=== PATIENT | male | born 1950 | race Caucasian/White ===

== ENCOUNTER 2024-07-06 08:37 | Outpatient (CLI) | payer OTHER, SELFPAY ==
[2024-07-06 08:55] VITALS: BMI 31.9
--- NOTE | 2024-07-06 09:22 | NMCV_ITS ---
NM fatoumata perf SPECT r/s* [id number] Tuan Tubbs Age: 73 Gender: M : 1950 Exam Date: 07/06/2024 09:35 Ordering Phys: Nikky Claire MD Technologist: CHARLENE Martinez Exam Location: [facility] Indications: STRESS TEST Please see separate stress test report in [facility] for full findings IMAGE PROTOCOL Rest/Stress 1 Exercise Day Radiopharmaceutical Dose (mCi) Administration Site Administered by Rest: Tc-99m 10.8 IV CHARLENE Martinez Sestamibi Stress:Tc-99m 32.4 IV CHARLENE Martinez Sestamibi Rest: 06-Jul-2024 60 Discovery 630 Stress: 06-Jul-2024 15 Discovery 630 Radiopharmaceutical was injected at 85 % maximum heart rate. Images obtained in supine and prone position. SPECT RESULTS Technical Quality: Excellent Raw Data Analysis: Normal Image Corrections: No attenuation or motion correction applied Summed Stress Score: 7 Summed Rest Score: 13 Summed Difference Score: 0 PERFUSION FINDINGS Moderate area of minimal to basal, mid and apical inferior, mid inferolateral and mid inferoseptal regions. No significant reversibility was noted in these regions. FUNCTIONAL RESULTS (calculated via Gated SPECT) Stress Image LV EF (%): 67 Stress EDV (mL):85 TID: 0.68 Stress ESV (mL):28 FUNCTIONAL FINDINGS: Segmental wall motion analysis revealing no gross wall motion abnormalities IMPRESSIONS 1. Moderate area of minimal to moderately decreased persistent tracer uptake involving the inferior, inferolateral and inferoseptal regions, suggesting myocardial scarring versus attenuation artifact 2. Normal LV ejection fraction of 67%. 3. LV wall motion analysis revealing no gross wall motion abnormalities. 4. Normal LV volume Low probability for coronary ischemia, based on the above findings Dr Francesco Arreguin MD FACC (Electronically Signed) Final Date: 06 July 2024 14:37 S
--- NOTE | 2024-07-06 09:22 | ECG_ITS ---
[facility] Test Date: 2024-07-06 Pat Name: Tuan Tubbs Department: Room: Gender: Male Stamping Machine Operator: Marva Constantino : 1950 Requested By: Nikky Claire Order Number: [id number] Desiree MD: Francesco Arreguin M.D. Interpretive Statements NAME OF STUDY: EXERCISE SESTAMIBI STRESS TEST INDICATION: MORENO, PROCEDURE: The baseline electrocardiogram showed [normal sinus rhythm with diffuse nonspecific T wave changes in the inferolateral leads. Voltage criteria for LVH. Left axis deviation. Some early repolarization changes in the high lateral leads. At the baseline, the patient's blood pressure was 126/81 mm Hg with a heart rate of 91. The patient exercised for 5 minutes and 56 seconds on a standard Alexandro protocol. Patient attained a maximum heart rate of 130 beats per minute(89% of the maximum predicted heart rate) with a blood pressure at the peak exercise of 167/77 mm Hg. The EKG at the peak exercise revealed no significant changes. Patient did not have any chest pain or any significant arrhythmis with the exercise Sestamibi was injected 1 minute prior to the peak exercise During the recovery phase, there were no new changes. Blood pressure at the end of the recovery phase was 146/64 mm Hg with a heart rate of 94 per minute. CONCLUSION: 1. No significant EKG changes with the [treadmill exercise 2. No exercise-induced chest pain or cardiac arrhythmia 3. Slightly impaired exercise tolerance, attained a maximum of 7.0 METs 4. Sestamibi/Sestamibi perfusion results pending; see separate report. Electronically Signed On 07-10-2024 8:14:37 CDT by Francesco Arreguin M.D. [email or web address]
[2024-07-06 10:37] VITALS: BP 146/64; PULSE 96
== END 2024-07-06 08:38 | disposition home or self-care (01) ==
LOC: CDL 08:38
PROVIDERS: PCP Family Medicine; Visit Provider Family Medicine
DX: R06.00 Dyspnea, unspecified (principal); R94.39 Abnormal result of other cardiovascular function study
CPT/HCPCS: 36415; 78452; 93017; A9500